=== PATIENT | female | born 1960 | race Caucasian/White ===

== ENCOUNTER 2017-07-06 08:52 | Outpatient (CLI) | payer OTHER ==
[2017-07-06 09:25] LABS: BASOPHILS % (AUTO) 0.7 % (0.0-2.0); EOSINOPHILS # (AUTO) 0.1 K/uL (0-0.4); HEMATOCRIT 45.7 % (36-48); HEMOGLOBIN 15.2 g/dL (12.0-16.0); LYMPHOCYTES # (AUTO) 2.6 K/uL (2.5-16.5); LYMPHOCYTES % (AUTO) 42.6 % (20.5-51.1); MEAN CORPUSCULAR HEMOGLOBIN 30 pg (27-31); MEAN CORPUSCULAR HGB CONC 33 g/dL (33-37); MEAN CORPUSCULAR VOLUME 91 fL (80-94); MONOCYTES # (AUTO) 0.1 K/uL (0.8-1.0); MONOCYTES % (AUTO) 2.2 % (1.7-9.3); NEUTROPHILS # (AUTO) 3.2 K/uL (1.8-7.7); NEUTROPHILS % (AUTO) 53.5 % (42.2-75.2); PLATELET COUNT (AUTO) 271 K/uL (140-450); RED BLOOD CELL COUNT(AUTO) 5.04 MIL/uL (4.20-5.40)
[2017-07-06 10:07] LABS: ANION GAP 10.9 (8-16); CARBON DIOXIDE 30.2 mmol/L (21-32); CREATININE 0.7 mg/dL (0.6-1.3); POTASSIUM 4.1 mmol/L (3.5-5.1)
[2017-07-06 10:36] LABS: ALBUMIN 3.9 g/dL (3.4-5.0); TOTAL BILIRUBIN 0.6 mg/dL (0.0-1.0)
[2017-07-06 11:32] LABS: CHOL/HDL RATIO 4.5 (1-4.5); THYROID STIMULATING HORMONE 5.03 uIU/mL (0.34-3.74)
== END 2017-07-06 20:16 | disposition home or self-care (01) ==
LOC: MLB 08:52
PROVIDERS: ATTEND Internal Medicine Geriatric Medicine
DX: Z00.00 Encounter for general adult medical examination without abnormal findings (principal)
CPT/HCPCS: 36415; 80053; 82272; 82306; 83036; 84443; 85025

== ENCOUNTER 2017-12-16 09:14 | Outpatient (CLI) | payer OTHER ==
[2017-12-16 11:48] LABS: ANION GAP 13.8 (8-16); CREATININE 0.7 mg/dL (0.6-1.3); POTASSIUM 3.8 mmol/L (3.5-5.1)
[2017-12-16 11:57] LABS: TOTAL BILIRUBIN 0.4 mg/dL (0.0-1.0)
[2017-12-16 11:59] LABS: ALBUMIN 3.9 g/dL (3.4-5.0)
[2017-12-16 12:00] LABS: CHOL/HDL RATIO 5.2 (1-4.5)
== END 2017-12-16 20:14 | disposition home or self-care (01) ==
LOC: MLB 09:14
PROVIDERS: ATTEND Internal Medicine Geriatric Medicine
DX: E78.5 Hyperlipidemia, unspecified (principal); I10 Essential (primary) hypertension; E03.9 Hypothyroidism, unspecified
CPT/HCPCS: 36415; 80053

== ENCOUNTER 2018-05-06 08:42 | Outpatient (CLI) | payer OTHER ==
[2018-05-06 10:12] LABS: ALBUMIN 3.8 g/dL (3.4-5.0); ANION GAP 10.6 (8-16); CARBON DIOXIDE 28.3 mmol/L (21-32); CREATININE 0.7 mg/dL (0.6-1.3); POTASSIUM 3.9 mmol/L (3.5-5.1); THYROID STIMULATING HORMONE 11.1 uIU/mL (0.34-3.74); TOTAL BILIRUBIN 0.4 mg/dL (0.0-1.0)
== END 2018-05-06 20:50 | disposition home or self-care (01) ==
LOC: MLB 08:42
PROVIDERS: ATTEND Internal Medicine Geriatric Medicine
DX: E78.5 Hyperlipidemia, unspecified (principal); E03.9 Hypothyroidism, unspecified; E66.9 Obesity, unspecified; R73.9 Hyperglycemia, unspecified; Z88.5 Allergy status to narcotic agent; Z88.2 Allergy status to sulfonamides; Z88.0 Allergy status to penicillin
CPT/HCPCS: 36415; 80053; 83036; 84443

== ENCOUNTER 2018-09-09 07:05 | Emergency (ER) | payer OTHER ==
[~2018-09-09] VITALS: Ht 152.4 cm; Wt 73.9 kg
[2018-09-09 07:26] VITALS: BP 131/71
--- NOTE | 2018-09-09 07:33 | NUR ---
PT AMBULATES TO BED 9
--- NOTE | 2018-09-09 07:40 | NUR ---
58 YO F BIB SELF C/O COUGH AND PRODUCTIVE COUGH, RUNNY NOSE AND THROAT ITCHINESS. DENIES N/V. PLACED IN BED, WAITING FOR ER MD FOR EVALUATION.
--- NOTE | 2018-09-09 07:45 | NUR ---
Patient being evaluated by physician at bedside.
--- NOTE | 2018-09-09 08:33 | NUR ---
XRAY AT BEDSIDE
--- NOTE | 2018-09-09 08:40 | NUR ---
VSS. PATIENT DENIES ANY PAIN AT THIS TIME. X RAY RESULTS PENDING
[2018-09-09] MEDS ORDERED: ACETAMINOPHEN 325 MG TAB PO ONE (09:10)
[2018-09-09 09:35] VITALS: BP 132/80
--- NOTE | 2018-09-09 09:35 | NUR ---
Patient discharged with v/s stable. Written and verbal after care instructions given and explained. Patient alert, oriented and verbalized understanding of instructions. Ambulatory with steady gait. All questions addressed prior to discharge. ID band removed. Patient advised to follow up with PMD. Rx of Tessalon and Flonase given. Patient educated on indication of medication including possible reaction and side effects. Opportunity to ask questions provided and answered.
== END 2018-09-09 09:35 | disposition home or self-care (01) ==
LOC: MED 07:05
DX: J06.9 Acute upper respiratory infection, unspecified (principal); E03.9 Hypothyroidism, unspecified; Z88.5 Allergy status to narcotic agent; Z88.0 Allergy status to penicillin; Z88.2 Allergy status to sulfonamides
CPT/HCPCS: 71045; 99283

== ENCOUNTER 2018-09-13 07:15 | Outpatient (CLI) | payer OTHER ==
[2018-09-13 09:20] LABS: ANION GAP 11.8 (8-16); CARBON DIOXIDE 28.1 mmol/L (21-32); CREATININE 0.6 mg/dL (0.6-1.3); POTASSIUM 3.9 mmol/L (3.5-5.1)
[2018-09-13 09:35] LABS: ALBUMIN 3.8 g/dL (3.4-5.0); CHOL/HDL RATIO 5.4 (1-4.5); THYROID STIMULATING HORMONE 2.68 uIU/mL (0.34-3.74); TOTAL BILIRUBIN 0.5 mg/dL (0.0-1.0)
== END 2018-09-13 22:06 | disposition home or self-care (01) ==
LOC: MLB 07:15
PROVIDERS: ATTEND Internal Medicine Geriatric Medicine
DX: E78.5 Hyperlipidemia, unspecified (principal); E03.9 Hypothyroidism, unspecified
CPT/HCPCS: 36415; 80053; 84443

== ENCOUNTER 2018-12-10 10:45 | Outpatient (CLI) | payer OTHER ==
[2018-12-10 11:46] LABS: ALBUMIN 3.7 g/dL (3.4-5.0); CARBON DIOXIDE 27.9 mmol/L (21-32); CHOL/HDL RATIO 4.9 (1-4.5); CREATININE 0.7 mg/dL (0.6-1.3); POTASSIUM 3.9 mmol/L (3.5-5.1); THYROID STIMULATING HORMONE 3.74 uIU/mL (0.34-3.74); TOTAL BILIRUBIN 0.7 mg/dL (0.0-1.0)
== END 2018-12-10 20:31 | disposition home or self-care (01) ==
LOC: MLB 10:45
PROVIDERS: ATTEND Internal Medicine Geriatric Medicine
DX: E78.5 Hyperlipidemia, unspecified (principal); R73.03 Prediabetes; E03.9 Hypothyroidism, unspecified
CPT/HCPCS: 36415; 80053; 83036; 84443

== ENCOUNTER 2019-04-17 07:28 | Outpatient (CLI) | payer OTHER ==
[2019-04-17 10:07] LABS: ALBUMIN 3.8 g/dL (3.4-5.0); ANION GAP 9.8 (8-16); CARBON DIOXIDE 31.2 mmol/L (21-32); CHOL/HDL RATIO 5.3 (1-4.5); CREATININE 0.6 mg/dL (0.6-1.3); THYROID STIMULATING HORMONE 5.69 uIU/mL (0.34-3.74); TOTAL BILIRUBIN 0.6 mg/dL (0.0-1.0)
== END 2019-04-17 20:31 | disposition home or self-care (01) ==
LOC: MLB 07:28
PROVIDERS: ATTEND Internal Medicine Geriatric Medicine
DX: E55.9 Vitamin D deficiency, unspecified (principal); E03.9 Hypothyroidism, unspecified; R73.03 Prediabetes; E78.5 Hyperlipidemia, unspecified
CPT/HCPCS: 36415; 80053; 82306; 83036; 84443

== ENCOUNTER 2020-11-02 15:46 | Emergency (ER) | payer OTHER ==
[~2020-11-02] VITALS: Ht 142.2 cm; Wt 73.5 kg
[2020-11-02 15:53] VITALS: BP 133/70
--- NOTE | 2020-11-02 15:54 | NUR ---
C/O RIGHT EAR PAIN SINCE SATURDAY. PATIENT DENIES INJURY OR TRAUMA. PULSATING PAIN IS 8/10. PATIENT DENIES SORE THROAT, COUGH, FEVER, CHILLS, N/V/D. HX HYPOTHYROID ALLERGIES: PCN, SULFA
--- NOTE | 2020-11-02 16:25 | NUR ---
MARY Roque at the bedside evaluating patient
[2020-11-02] MEDS ORDERED: COROTSOL OT (16:36)
[2020-11-02] MEDS ORDERED: IBUP-2213 PO (16:36)
[2020-11-02 16:46] VITALS: BP 133/70
--- NOTE | 2020-11-02 16:46 | NUR ---
Patient discharged with v/s stable. Written and verbal after care instructions given and explained. Patient alert, oriented and verbalized understanding of instructions. Ambulatory with steady gait. All questions addressed prior to discharge. ID band removed. Patient advised to follow up with PMD. Rx of cortisporin otic solution, ibuprofen given. Patient educated on indication of medication including possible reaction and side effects. Opportunity to ask questions provided and answered.
== END 2020-11-02 16:46 | disposition home or self-care (01) ==
LOC: MED 15:46
DX: H60.501 Unspecified acute noninfective otitis externa, right ear (principal); E07.9 Disorder of thyroid, unspecified; Z79.899 Other long term (current) drug therapy; Z88.0 Allergy status to penicillin; Z88.2 Allergy status to sulfonamides; Z88.5 Allergy status to narcotic agent
CPT/HCPCS: 99283

== ENCOUNTER 2020-11-07 09:13 | Outpatient (CLI) | payer OTHER ==
[~2020-11-07 09:13] MED LIST: COROTSOL OT; IBUP-2213 PO
[2020-11-07 09:36] LABS: BASOPHILS % (AUTO) 0.7 % (0.0-2.0); EOSINOPHILS # (AUTO) 0.1 K/uL (0-0.4); EOSINOPHILS % (AUTO) 0.9 % (0.0-4.0); HEMATOCRIT 43.9 % (36-48); HEMOGLOBIN 15.1 g/dL (12.0-16.0); LYMPHOCYTES # (AUTO) 1.9 K/uL (2.5-16.5); LYMPHOCYTES % (AUTO) 34.5 % (20.5-51.1); MEAN CORPUSCULAR HEMOGLOBIN 32 pg (27-31); MEAN CORPUSCULAR HGB CONC 34 g/dL (33-37); MEAN CORPUSCULAR VOLUME 92.2 fL (80-94); MONOCYTES # (AUTO) 0.3 K/uL (0.8-1.0); MONOCYTES % (AUTO) 4.8 % (1.7-9.3); NEUTROPHILS # (AUTO) 3.2 K/uL (1.8-7.7); NEUTROPHILS % (AUTO) 59.1 % (42.2-75.2); PLATELET COUNT (AUTO) 312 K/uL (140-450); RED BLOOD CELL COUNT(AUTO) 4.76 MIL/uL (4.20-5.40); RED CELL DISTRIBUTION WIDTH 12.7 % (11.6-13.7); WHITE BLOOD COUNT (AUTO) 5.4 K/uL (4.8-10.8)
[2020-11-07 09:58] LABS: ALBUMIN 3.4 g/dL (3.4-5.0); ANION GAP 7.5 (8-16); CARBON DIOXIDE 32.7 mmol/L (21-32); CHOL/HDL RATIO 5.1 (1-4.5); CREATININE 0.6 mg/dL (0.6-1.3); POTASSIUM 4.2 mmol/L (3.5-5.1); TOTAL BILIRUBIN 0.3 mg/dL (0.0-1.0)
[2020-11-08 06:07] LABS: T4 FREE (DIRECT) 1.45 ng/dL (0.82-1.77)
== END 2020-11-07 20:39 | disposition home or self-care (01) ==
LOC: MLB 09:13
PROVIDERS: ATTEND Internal Medicine Geriatric Medicine
DX: Z00.00 Encounter for general adult medical examination without abnormal findings (principal)
CPT/HCPCS: 36415; 80053; 82306; 83036; 84439; 84443; 85025

== ENCOUNTER 2021-02-10 09:28 | Outpatient (CLI) | payer OTHER ==
[2021-02-10 11:43] LABS: ALBUMIN 3.7 g/dL (3.4-5.0); ANION GAP 10.3 (8-16); CARBON DIOXIDE 27.6 mmol/L (21-32); CHOL/HDL RATIO 5.5 (1-4.5); CREATININE 0.7 mg/dL (0.6-1.3); POTASSIUM 3.9 mmol/L (3.5-5.1); THYROID STIMULATING HORMONE 4.4 uIU/mL (0.34-3.74); TOTAL BILIRUBIN 0.6 mg/dL (0.0-1.0)
== END 2021-02-10 19:51 | disposition home or self-care (01) ==
LOC: MLB 09:28
PROVIDERS: ATTEND Internal Medicine Geriatric Medicine
DX: E78.5 Hyperlipidemia, unspecified (principal); E03.9 Hypothyroidism, unspecified
CPT/HCPCS: 36415; 80053; 83036; 84443

== ENCOUNTER 2022-01-30 09:13 | Outpatient (CLI) | payer OTHER ==
[2022-01-30 10:13] LABS: BASOPHILS % (AUTO) 0.2 % (0.0-2.0); EOSINOPHILS % (AUTO) 0.7 % (0.0-4.0); HEMATOCRIT 43.9 % (36-48); LYMPHOCYTES # (AUTO) 2.1 K/uL (2.5-16.5); LYMPHOCYTES % (AUTO) 39.1 % (20.5-51.1); MEAN CORPUSCULAR HEMOGLOBIN 31 pg (27-31); MEAN CORPUSCULAR HGB CONC 34 g/dL (33-37); MEAN CORPUSCULAR VOLUME 90.6 fL (80-94); MONOCYTES # (AUTO) 0.3 K/uL (0.8-1.0); MONOCYTES % (AUTO) 4.7 % (1.7-9.3); NEUTROPHILS % (AUTO) 55.3 % (42.2-75.2); PLATELET COUNT (AUTO) 266 K/uL (140-450); RED BLOOD CELL COUNT(AUTO) 4.85 MIL/uL (4.20-5.40); RED CELL DISTRIBUTION WIDTH 12.8 % (11.6-13.7); WHITE BLOOD COUNT (AUTO) 5.4 K/uL (4.8-10.8)
[2022-01-30 10:17] LABS: ALBUMIN 3.7 g/dL (3.4-5.0); ANION GAP 11.1 (8-16); CARBON DIOXIDE 29.8 mmol/L (21-32); CHOL/HDL RATIO 4.8 (1-4.5); CREATININE 0.6 mg/dL (0.6-1.3); POTASSIUM 3.9 mmol/L (3.5-5.1); THYROID STIMULATING HORMONE 0.88 uIU/mL (0.34-3.74); TOTAL BILIRUBIN 0.5 mg/dL (0.0-1.0)
== END 2022-01-30 19:39 | disposition home or self-care (01) ==
LOC: MLB 09:13
PROVIDERS: ATTEND Internal Medicine Geriatric Medicine
DX: Z12.11 Encounter for screening for malignant neoplasm of colon (principal); Z00.00 Encounter for general adult medical examination without abnormal findings
CPT/HCPCS: 36415; 80053; 82272; 82306; 83036; 84439; 84443; 85025

== ENCOUNTER 2022-02-25 14:16 | Emergency (ER) | payer OTHER ==
[~2022-02-25] VITALS: Ht 152.4 cm; Wt 72.6 kg
[2022-02-25 14:22] VITALS: BP 162/91
--- NOTE | 2022-02-25 15:00 | NUR ---
62/F PRESENTS TO ED WITH C/O LEFT EAR PRESSURE THIS MORNING WHILE IN THE SHOWER AND STATES SHE BEGAN HAVING BACK PAIN SHORTLY AFTER. DENIES INJURY OR TRAUMA, STATES HER EAR AND NECK "FEEL HOT" AND REPORTS SEEING BLOOD FROM EAR, DENIES TAKING MEDS.
[2022-02-25] MEDS ORDERED: IBUP-1842 PO (15:39)
[2022-02-25 15:56] VITALS: BP 162/91
--- NOTE | 2022-02-25 15:56 | NUR ---
Patient discharged with v/s stable. Written and verbal after care instructions ABOUT ACUTE BACK PAIN given and explained. Patient alert, oriented and verbalized understanding of instructions. Ambulatory with steady gait. All questions addressed prior to discharge. ID band removed. Patient advised to follow up with PMD. Rx of IBUPROFEN given. Patient educated on indication of medication including possible reaction and side effects. Opportunity to ask questions provided and answered.
== END 2022-02-25 15:56 | disposition home or self-care (01) ==
LOC: MED 14:16
DX: M54.50 Low back pain, unspecified (principal); H92.02 Otalgia, left ear; E03.9 Hypothyroidism, unspecified; Z88.0 Allergy status to penicillin; Z88.2 Allergy status to sulfonamides; Z88.5 Allergy status to narcotic agent
CPT/HCPCS: 99282

== ENCOUNTER 2022-06-26 09:18 | Outpatient (CLI) | payer OTHER ==
[~2022-06-26 09:18] MED LIST changes: +IBUP-1842 PO
[2022-06-26 12:39] LABS: ALBUMIN 4.1 g/dL (3.4-5.0); ANION GAP 11.9 (8-16); CREATININE 0.6 mg/dL (0.6-1.3); POTASSIUM 3.9 mmol/L (3.5-5.1)
[2022-06-26 12:57] LABS: CHOL/HDL RATIO 5.8 (1-4.5); TOTAL BILIRUBIN 0.6 mg/dL (0.0-1.0)
== END 2022-06-26 19:18 | disposition home or self-care (01) ==
LOC: MLB 09:18
PROVIDERS: ATTEND Internal Medicine Geriatric Medicine
DX: E78.5 Hyperlipidemia, unspecified (principal)
CPT/HCPCS: 36415; 80053

== ENCOUNTER 2022-07-31 09:24 | Outpatient (CLI) | payer OTHER ==
[2022-07-31 11:38] LABS: ALBUMIN 4.2 g/dL (3.4-5.0); ANION GAP 10.1 (8-16); CHOL/HDL RATIO 5.2 (1-4.5); CREATININE 0.7 mg/dL (0.6-1.3); POTASSIUM 4.1 mmol/L (3.5-5.1); THYROID STIMULATING HORMONE 2.08 uIU/mL (0.34-3.74); TOTAL BILIRUBIN 0.4 mg/dL (0.0-1.0)
== END 2022-07-31 20:23 | disposition home or self-care (01) ==
LOC: MLB 09:24
PROVIDERS: ATTEND Internal Medicine Geriatric Medicine
DX: E78.5 Hyperlipidemia, unspecified (principal); E03.9 Hypothyroidism, unspecified
CPT/HCPCS: 36415; 80053; 84443

== ENCOUNTER 2024-03-03 06:53 | Outpatient (CLI) | payer OTHER ==
[2024-03-03 08:59] LABS: BASOPHILS % (AUTO) 0.5 % (0.0-2.0); EOSINOPHILS # (AUTO) 0.1 K/uL (0-0.4); EOSINOPHILS % (AUTO) 0.7 % (0.0-4.0); HEMATOCRIT 42.5 % (36-48); HEMOGLOBIN 14.6 g/dL (12.0-16.0); LYMPHOCYTES # (AUTO) 2.2 K/uL (2.5-16.5); LYMPHOCYTES % (AUTO) 28.1 % (20.5-51.1); MEAN CORPUSCULAR HEMOGLOBIN 31 pg (27-31); MEAN CORPUSCULAR HGB CONC 34 g/dL (33-37); MEAN CORPUSCULAR VOLUME 91.1 fL (80-94); MONOCYTES # (AUTO) 0.4 K/uL (0.8-1.0); MONOCYTES % (AUTO) 5.3 % (1.7-9.3); NEUTROPHILS # (AUTO) 5.1 K/uL (1.8-7.7); NEUTROPHILS % (AUTO) 65.4 % (42.2-75.2); PLATELET COUNT (AUTO) 260 K/uL (140-450); RED BLOOD CELL COUNT(AUTO) 4.67 MIL/uL (4.20-5.40); RED CELL DISTRIBUTION WIDTH 13.3 % (11.6-13.7); WHITE BLOOD COUNT (AUTO) 7.8 K/uL (4.8-10.8)
[2024-03-03 10:26] LABS: ALBUMIN 3.7 g/dL (3.4-5.0); ANION GAP 12.2 (8-16); CALCIUM 8.7 mg/dL (8.5-10.1); CARBON DIOXIDE 28.6 mmol/L (21-32); CHOL/HDL RATIO 4.7 (1-4.5); CREATININE 0.7 mg/dL (0.6-1.3); POTASSIUM 3.8 mmol/L (3.5-5.1); THYROID STIMULATING HORMONE 5.35 uIU/mL (0.34-3.74); TOTAL BILIRUBIN 0.7 mg/dL (0.0-1.0); TOTAL PROTEIN, SERUM 7.5 g/dL (6.4-8.2)
[2024-03-04 08:09] LABS: T4 FREE (DIRECT) 1.36 ng/dL (0.82-1.77); VITAMIN D, 25-HYDROXY 36.1 ng/mL (30.0-100.0)
== END 2024-03-03 22:20 | disposition home or self-care (01) ==
LOC: MLB 06:53
DX: Z01.89 Encounter for other specified special examinations (principal)
CPT/HCPCS: 36415; 80053; 82306; 83036; 84439; 84443; 85025